=== PATIENT | male | born 1950 | race Caucasian/White ===

== ENCOUNTER 2021-07-31 07:03 | Emergency (ER) | payer MEDICARE ==
[~2021-07-31] VITALS: Ht 175.3 cm; Wt 99.8 kg
[~2021-07-31 07:03] MED LIST: BAYER CHEWABLE81 MG PO; BRIMONIDINE 0.110 ML OP; CALCIUM 500 MG; DEPAKOTE ER500 MG PO; GLUCOTROL XL5 MG PO; HALOPERIDOL0.5 MG PO; LIPITOR20 MG PO; LISINOPRIL20 MG PO; METAMUCIL0.4 GM PO; MILK OF MA400 MG/5 M PO; MULTI VITAMIN1 EACH PO; PAIN RELIEF325 M1 PO; TUSSIN DM COUG118 M2 PO; WELLBUTRIN SR150 MG PO; XALATAN2.5 ML OPTH
[2021-07-31] MEDS ORDERED: PLAVIX75 MG PO (07:54)
== END 2021-07-31 10:57 | disposition home or self-care (01) ==
LOC: ED 07:03
DX: G45.9 Transient cerebral ischemic attack, unspecified (principal); Z87.891 Personal history of nicotine dependence; Z91.09 Other allergy status, other than to drugs and biological substances; Z79.82 Long term (current) use of aspirin; Z79.84 Long term (current) use of oral hypoglycemic drugs
CPT/HCPCS: 36415; 70450; 70496; 70498; 80048; 80164; 85025; 99285-25; J7030; Q9967

== ENCOUNTER 2021-08-17 09:10 | Emergency (ER) | payer OTHER, MEDICARE ==
[~2021-08-17] VITALS: Ht 175.3 cm; Wt 99.8 kg
[~2021-08-17 09:10] MED LIST changes: +ADULT ASPIRIN R81 MG PO; -BAYER CHEWABLE81 MG PO; -BRIMONIDINE 0.110 ML OP; +BRIMONIDINE TART5 ML OU; -CALCIUM 500 MG; +CALCIUM 600-VI1 EAC9 PO; -DEPAKOTE ER500 MG PO; +DEPAKOTE250 MG PO; -METAMUCIL0.4 GM PO; +METAMUCIL660 GM PO; +PLAVIX75 MG PO; -WELLBUTRIN SR150 MG PO; +WELLBUTRIN XL150 MG PO; -XALATAN2.5 ML OPTH; +XALATAN2.5 ML OU
--- OUTSIDE RECORDS SUMMARY | 2021-08-17 09:18 | XMS ---
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 Nabila has no Care Guidelines for this patient. Kg VISIT COUNT (12 MO.) [facility] TOTAL 2 NOTE: Visits indicate total known visits. ED/C VISIT TRACKING (12 MO.) 08/17/2021 09:[address] [facility] [place] TYPE: Emergency COMPLAINT: - HIGH B/P, WEAK, CONFUSED 07/31/2021 07:[address] 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
--- NOTE | 2021-08-17 13:49 | EKG ---
[facility] [address] [place] [address] Signed Normal sinus rhythm Normal ECG When compared with ECG of 10-SEP-2020 14:19, No significant change was found Confirmed by BALWINDER CHACON MD ([id number]) on 08/17/2021 1:49:24 PM Electronically Signed By: BALWINDER CHACON MD 08/17/21 1349 PATIENT NAME: ELISA ANGLIN JR Electrocardiogram DATE OF : 48 PHYSICIAN: BALWINDER CHACON MD REPORT #: [id number] REPORT IS CONFIDENTIAL AND NOT TO BE RELEASED WITHOUT AUTHORIZATION
[2021-08-17] MEDS ORDERED: SODIUM FLUORIDE51 GM MM (15:52)
[2021-08-17] MEDS ORDERED: PERIDEX473 M1 MM (15:58)
[2021-08-17] MEDS ORDERED: COSOPT EYE DROP10 ML OU (16:03)
[2021-08-17] MEDS ORDERED: BENADRYL25 MG PO (16:07)
[2021-08-17] MEDS ORDERED: COUGH DROPS1 EACH MM (16:08)
[2021-08-18] MEDS ORDERED: CLOPIDOGREL75 MG PO (02:45)
== END 2021-08-17 18:30 | disposition home or self-care (01) ==
LOC: ED 09:10
DX: I60.9 Nontraumatic subarachnoid hemorrhage, unspecified (principal); I10 Essential (primary) hypertension; I25.10 Atherosclerotic heart disease of native coronary artery without angina pectoris; Z87.891 Personal history of nicotine dependence; Z91.09 Other allergy status, other than to drugs and biological substances; Z79.899 Other long term (current) drug therapy; Z79.84 Long term (current) use of oral hypoglycemic drugs
CPT/HCPCS: 36415; 70450; 70553; 72125; 80053; 81001; 85025; 85610; 85730; 93005; 93010; 99285-25; A9579; J7121

== ENCOUNTER 2021-08-18 02:15 | Emergency (ER) | payer OTHER, MEDICARE ==
[~2021-08-18] VITALS: Ht 175.3 cm; Wt 100.1 kg
[~2021-08-18 02:15] MED LIST changes: +BENADRYL25 MG PO; +COSOPT EYE DROP10 ML OU; +COUGH DROPS1 EACH MM; +PERIDEX473 M1 MM; +SODIUM FLUORIDE51 GM MM
--- OUTSIDE RECORDS SUMMARY | 2021-08-18 02:22 | XMS ---
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 Nabila has no Care Guidelines for this patient. Kg VISIT COUNT (12 MO.) 3 [facility] [place] [facility]. TOTAL 3 NOTE: Visits indicate total known visits. ED/C VISIT TRACKING (12 MO.) 08/18/2021 02:16 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
[2021-08-18] MEDS ORDERED: CLOPIDOGREL75 MG PO (02:45)
== END 2021-08-18 11:12 | disposition home or self-care (01) ==
LOC: ED 02:15
DX: S06.5X9A Traumatic subdural hemorrhage with loss of consciousness of unspecified duration, initial encounter (principal); I10 Essential (primary) hypertension; I25.10 Atherosclerotic heart disease of native coronary artery without angina pectoris; Z87.891 Personal history of nicotine dependence; Z91.09 Other allergy status, other than to drugs and biological substances; Z79.899 Other long term (current) drug therapy; Z79.84 Long term (current) use of oral hypoglycemic drugs; W19.XXXA Unspecified fall, initial encounter; W22.8XXA Striking against or struck by other objects, initial encounter
CPT/HCPCS: 70551; 97162; 99283-25

== ENCOUNTER 2021-08-19 11:01 | Emergency (ER) | payer OTHER, MEDICARE ==
[~2021-08-19] VITALS: Ht 175.3 cm; Wt 99.8 kg
[~2021-08-19 11:01] MED LIST changes: +CLOPIDOGREL75 MG PO
--- OUTSIDE RECORDS SUMMARY | 2021-08-19 11:08 | XMS ---
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 - 2 Visits in 30 Days CARE PROVIDERS There are no care providers on record at this time. Nabila has no Care Guidelines for this patient. Kg VISIT COUNT (12 MO.) [address] [facility] TOTAL 4 NOTE: Visits indicate total known visits. ED/C VISIT TRACKING (12 MO.) 08/19/2021 11:[address] 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
--- NOTE | 2021-08-19 16:26 | EKG ---
[facility] [address] [place], [place] [address] Signed Normal sinus rhythm Normal ECG When compared with ECG of 17-AUG-2021 11:01, No significant change was found Confirmed by BRENNAN GILL DO ([id number]) on 08/19/2021 4:26:31 PM Electronically Signed By: BRENNAN GILL DO 08/19/21 1626 PATIENT NAME: ELISA ANGLIN JR Electrocardiogram DATE OF : 48 PHYSICIAN: BRENNAN GILL DO REPORT #: [id number] REPORT IS CONFIDENTIAL AND NOT TO BE RELEASED WITHOUT AUTHORIZATION
== END 2021-08-19 15:12 | disposition home or self-care (01) ==
LOC: ED 11:01
DX: G81.91 Hemiplegia, unspecified affecting right dominant side (principal); I10 Essential (primary) hypertension; I25.10 Atherosclerotic heart disease of native coronary artery without angina pectoris; Z87.891 Personal history of nicotine dependence; Z91.09 Other allergy status, other than to drugs and biological substances; Z79.899 Other long term (current) drug therapy; Z79.84 Long term (current) use of oral hypoglycemic drugs; W18.30XA Fall on same level, unspecified, initial encounter
CPT/HCPCS: 36415; 70450; 70496; 70498; 71045; 80053; 84484; 85025; 85610; 85730; 93005; 93010; 99285-25; Q9967